=== PATIENT | female | born 1960 | race Caucasian/White ===

== ENCOUNTER 2017-11-30 16:34 | Emergency (ER) | payer BC ==
[2017-11-30 17:03] VITALS: BP 140/84
--- NOTE | 2017-11-30 18:19 | UC ---
General HPI - HPI Summary HPI Summary: 57 yo WF c/o B/L elbow and B/L knee pains since last may but acutely feels more fatigued along with new onset of left knee erythematous vesicular rash since yesterday. Kisha f/c, never had lyme titer done - History of Current Complaint Chief Complaint: UCGeneralIllness Stated Complaint: LEG PAIN Time Seen by Provider: 11/30/17 17:50 Hx Obtained From: Patient Onset/Duration: Sudden Onset Timing: Constant Onset Severity: Moderate Current Severity: Moderate Pain Intensity: 4 - Allergy/Home Medications Allergies/Adverse Reactions: Allergies Allergy/AdvReac Type Severity Reaction Status Date / Time Penicillins Allergy Unknown Verified 11/30/17 17:03 Reaction Details PMH/Surg Hx/FS Hx/Imm Hx - Additional Past Medical History Additional PMH: hot flashes due to menopause Previously Healthy: Yes - Surgical History Surgical History: Yes Surgery Procedure, Year, and Place: [place] [facility] [place]- [place] [facility] [place]ST [place]OV[place] [facility] [place]. WISDOM TEETH 1979. PARTIAL HYSTERECTOMY - 2013 - Social History Alcohol Use: Occasionally Substance Use Type: None Smoking Status (MU): Never Smoked Tobacco Review of Systems Constitutional: Negative Skin: Rash Eyes: Negative ENT: Negative Respiratory: Negative Cardiovascular: Negative Gastrointestinal: Negative Genitourinary: Negative Motor: Negative Neurovascular: Negative Musculoskeletal: Myalgia Neurological: Negative Psychological: Negative All Other Systems Reviewed And Are Negative: Yes Physical Exam Triage Information Reviewed: Yes Appearance: No Pain Distress Vital Signs: Initial Vital Signs Temp 37.3 C 11/30/17 16:58 Pulse 75 11/30/17 16:58 Resp 18 11/30/17 16:58 BP 140/84 11/30/17 16:58 Pulse Ox 98 11/30/17 16:58 Eye Exam: Normal ENT Exam: Normal Dental Exam: Normal Neck exam: Normal Neck: Positive: 1 Respiratory Exam: Normal Cardiovascular Exam: Normal Abdominal Exam: Normal Musculoskeletal Exam: Normal Neurological Exam: Normal Psychological Exam: Normal Skin: Positive: rashes - upper lateral peripatellar erythematous mildly vesicular rash and mild tenderness along L4 dermatome Course/Dx - Course Course Of Treatment: right anterior thigh shingles- tx with valtrex. Fatigue and diffuse joint pains- check lyme titer, TSH, CBC,CMP - Differential Dx - Multi-Symptom Provider Diagnoses: Right anterior thigh Shingles. Diffuse B/L arthalgias Discharge - Sign-Out/Discharge Documenting (check all that apply): Discharge/Admit/Transfer - Discharge Plan Condition: Stable Disposition: HOME Prescriptions: ValACYclovir (*) [Valtrex 1 GM(*)] 1 gm PO TID 7 Days #21 tab Patient Education Materials: Shingles (ED), Arthralgia (ED) Referrals: Delfin Laughlin MD [Primary Care Provider] - Additional Instructions: Follow up with PCP within one week, take medication as directed - Billing Disposition and Condition Condition: STABLE Disposition: HOME
[2017-12-01 11:26] LABS: ABS Basophils 0 10^3/ul (0-0.2); ABS Eosinophils 0.1 10^3/ul (0-0.6); ABS Lymphocytes 1.3 10^3/ul (1.0-4.8); ABS Monocytes 0.6 10^3/ul (0-0.8); ABS Neutrophils 8.1 10^3/ul (1.5-7.7); ABS Nucleated RBC 0 10^3/ul; Eosinophil % 1.4 % (0-6); Hematocrit 37 % (35-47); Hemoglobin 12.7 g/dl (12.0-16.0); Lymphocyte % 12.5 % (25-47); Mean Corpuscular HGB Conc 34 g/dl (31-36); Mean Corpuscular Hemoglobin 32 pg (27-31); Mean Corpuscular Volume 95 fL (80-97); Mean Platelet Volume 9.5 um3 (7.4-10.4); Nucleated Red Blood Cells % 0.1; Platelet Count 241 10^3/ul (150-450); Red Blood Count 3.92 10^6/ul (4.0-5.4); Red Cell Distribution Width 13 % (10.5-15); White Blood Count 10.2 10^3/ul (3.5-10.8)
[2017-12-01 11:36] LABS: EGFR Non-African American 63.9 (>60)
== END 2017-11-30 18:35 | disposition home or self-care (01) ==
LOC: UCEAST 16:34
DX: B02.9 Zoster without complications (principal); M25.521 Pain in right elbow; M25.522 Pain in left elbow; M25.561 Pain in right knee; M25.562 Pain in left knee; Z88.0 Allergy status to penicillin
CPT/HCPCS: 36415; 80053; 84443; 85025; 86617; 87476; 87798; 99212; G0463